=== PATIENT | female | born 1955 | race Caucasian/White ===

== ENCOUNTER 2017-03-17 12:01 | Inpatient (IN) | payer OTHER ==
--- NOTE | 2017-03-17 13:05 | EDPHY ---
H & P Stated Complaint: htn, blood pressure incresed during stress test, unable to complete Time Seen by Provider: 03/17/17 12:51 HPI/ROS: CHIEF COMPLAINT: High blood pressure comma chest pain HISTORY OF PRESENT ILLNESS: The patient is a 62-year-old female who is sent from the Cardiology Clinic for admission and cardiac workup. She denies significant past medical history. She was referred by her primary care physician for a stress test today. During the stress test her blood pressure which was 160 systolic at baseline elevated to almost 260. She also experienced chest pain and shortness of breath and diaphoresis. She states that she has had the symptoms with exertion over the last month. Especially when climbing stairs. They performed a echocardiogram that was unremarkable at the cardiology clinic and sent her here for enzymes and admission. The patient currently is asymptomatic but still has an elevated blood pressure. She denies headache or lightheadedness or palpitations. REVIEW OF SYSTEMS: Constitutional: denies: chills, fever, recent illness, recent injury EENTM: denies: blurred vision, double vision, nose congestion Respiratory: denies: cough, shortness of breath Cardiac: See HPI Gastrointestinal/Abdominal: denies: abdominal pain, diarrhea, nausea, vomiting, blood streaked stools Genitourinary: denies: dysuria, frequency, hematuria, pain Musculoskeletal: denies: joint pain, muscle pain Skin: denies: lesions, rash, jaundice, bruising Neurological: denies: headache, numbness, paresthesia, tingling, dizziness, weakness Hematologic/Lymphatic: denies: blood clots, easy bleeding, easy bruising Immunologic/allergic: denies: HIV/AIDS, transplant EXAM: GENERAL: Well-appearing, overweight and in no acute distress. HEAD: Atraumatic, normocephalic. EYES: Pupils equal round and reactive to light, extraocular movements intact, sclera anicteric, conjunctiva are normal. ENT: TMs normal, nares patent, oropharynx clear without exudates. Moist mucous membranes. NECK: Normal range of motion, supple without lymphadenopathy or JVD. LUNGS: Breath sounds clear to auscultation bilaterally and equal. No wheezes rales or rhonchi. HEART: Regular rate and rhythm without murmurs, rubs or gallops. ABDOMEN: Soft, nontender, normoactive bowel sounds. No guarding, no rebound. No masses appreciated. BACK: No CVA tenderness, no spinal tenderness, step-offs or deformities EXTREMITIES: Normal range of motion, no pitting or edema. No clubbing or cyanosis. NEUROLOGICAL: Cranial nerves II through XII grossly intact. Normal speech, normal gait. 5/5 strength, normal movement in all extremities, normal sensation PSYCH: Normal mood, normal affect. SKIN: Warm, dry, normal turgor, no visible rashes or lesions. Source: Patient Exam Limitations: No limitations - Personal History Current Tetanus Diphtheria and Acellular Pertussis (TDAP): Yes - Medical/Surgical History Hx Asthma: No Hx Chronic Respiratory Disease: No Hx Diabetes: No Hx Cardiac Disease: No Hx Renal Disease: No Hx Cirrhosis: No Hx Alcoholism: No Hx HIV/AIDS: No Hx Splenectomy or Spleen Trauma: No Other PMH: high cholesterol - Family History Significant Family History: No pertinent family hx - Social History Smoking Status: Never smoked Alcohol Use: Sober Drug Use: None Constitutional: Initial Vital Signs Temperature (C) 36.8 C 03/17/17 12:11 Heart Rate 80 03/17/17 12:11 Respiratory Rate 16 03/17/17 12:11 Blood Pressure 212/94 H 03/17/17 12:11 O2 Sat (%) 95 03/17/17 12:11 O2 Delivery Mode Room Air Allergies/Adverse Reactions: lovastatin Allergy (Verified 02/26/16 08:37) Other-Enter Comments LACTOSE INTOL Allergy (Uncoded 10/19/12 12:15) GI ISSUES Home Medications: Medication Instructions Recorded Estradiol [Estradiol 1 MG (*)] 1 mg PO HS 03/17/17 Fenofibrate [Tricor 145 mg (*)] 145 mg PO DAILY 03/17/17 Herbals/Supplements -Info Only 1 ea PO DAILY 03/17/17 Ibuprofen [Advil] 200 mg PO DAILY PRN 03/17/17 Progesterone, Micronized 100 mg PO HS 03/17/17 [Progesterone] Medical Decision Making - Diagnostics EKG Interpretation: An EKG obtained and was read and documented in trace view. Please see trace view for full reading and report. Left bundle branch block, no acute ischemic changes ED Course/Re-evaluation: 2:30 Discussed the case with Dr. Nancy Hess who will admit to the medical service. The patient remained symptom-free. Blood pressure is improved with metoprolol. Differential Diagnosis: Partial list of the Differential diagnosis considered include but were not limited to; acute coronary disease, arrhythmia, hypertensive emergency and although unlikely based on the history and physical exam, I also considered STEMI, infection. - Data Points Laboratory Results: Laboratory Results 03/17/17 13:14 03/17/17 13:14 Medications Given: Discontinued Medications Metoprolol Tartrate (Lopressor Injection) 5 mg IVP Q5M CHRISTINE Stop: 03/17/17 13:41 Last Admin: 03/17/17 15:04 Dose: Not Given Departure - Departure Disposition: [facility] Inpatient Acute Clinical Impression: Chest pain Qualifiers: Chest pain type: other chest pain Qualified Code(s): R07.89 - Other chest pain Condition: Fair
[2017-03-17] MEDS: METOPROLOL TARTRATE 5 MG/5 ML INJ IVP SCH ×2 (13:19→15:04)
[2017-03-17 13:21] LABS: % IMMATURE GRANULYOCYTES 0.2 % (0.0-1.1); ABSOLUTE IMMATURE GRANULOCYTES 0.02 10^3/uL (0.00-0.10); ADD DIFF? NO; ADD MORPH? NO; ADD SCAN? NO; ATYPICAL LYMPHOCYTE FLAG 10 (0-99); FRAGMENT RBC FLAG 0 (0-99); HEMATOCRIT 46.6 % (38.0-47.0); LEFT SHIFT FLG 0 (0-99); LIPEMIA HEMOLYSIS FLAG 80 (0-99); MEAN CELL HEMOGLOBIN 28.4 pg (27.9-34.1); MEAN CELL HEMOGLOBIN CONCENTR. 32.2 g/dL (32.4-36.7); MEAN CELL VOLUME 88.1 fL (81.5-99.8); MEAN PLATELET VOLUME 12.4 fL (8.7-11.7); PLATELET CLUMPS FLAG 10 (0-99); PLATELET COUNT 275 10^3/uL (150-400); RED BLOOD CELL COUNT 5.29 10^6/uL (4.18-5.33); RED CELL DISTRIBUTION WIDTH 13.6 % (11.5-15.2)
--- NOTE | 2017-03-17 13:21 | CPEKG ---
Heart Rate: 69 RR Interval: 870 P-R Interval: 184 QRSD Interval: 156 QT Interval: 468 QTC Interval: 502 P [place]: 47 QRS Hugo: -62 T Wave [place]: 77 EKG Severity - ABNORMAL ECG - EKG Impression: SINUS RHYTHM EKG Impression: LEFT BUNDLE BRANCH BLOCK Electronically Signed By: Cuco Moise 17-Mar-2017 13:24:50
[2017-03-17 13:55] LABS: ANION GAP 14 mEq/L (8-16); CALCIUM 10.9 mg/dL (8.5-10.4); CARBON DIOXIDE 23 mEq/l (22-31); CHLORIDE 107 mEq/L (97-110); CREATININE 0.8 mg/dL (0.6-1.0); GLOMERULAR FILTRATION RATE > 60; GLUCOSE 155 mg/dL (70-100); POTASSIUM 4.2 mEq/L (3.5-5.2); SODIUM 144 mEq/L (134-144)
[2017-03-17 14:06] LABS: TROPONIN I < 0.012 ng/mL (0-0.034)
[2017-03-17] MEDS ORDERED: NITROGLYCERIN 0.4 MG BTL SL PRN (15:47)
[2017-03-17] MEDS ORDERED: ONDANSETRON 4 MG/2 ML VIAL IVP PRN (15:51)
[2017-03-17] MEDS ORDERED: hydrALAZINE 20 MG/ML VIAL IVP PRN (15:51)
--- NOTE | 2017-03-17 16:32 | GHP ---
[f rep st] HISTORY AND PHYSICAL DATE OF ADMISSION: 03/17/2017 CHIEF COMPLAINT: Chest pain, shortness of breath. HISTORY: The patient is a 62-year-old female who was sent from the cardiology office where she was attempting to do an outpatient stress test today. On presentation her systolic blood pressure is 16 0 and it went up to 260 during the stress test and she developed chest pain and shortness of breath and so the stress test was aborted. They did an echo in the office that was negative. They sent he r to the emergency room and recommended observation stay with Lexiscan stress test tomorrow morning. The patient has been having gradually worsening chest pain for the last 7 weeks. It initially start ed as shortness of breath that she would get with very minimal exertion. She subsequently developed a right-sided chest pain, also worse with exertion and better with rest. This was dull. These sym ptoms were quite severe, however, and they took a trip to [place] and she was on a tour bus with many [id number] and she could not keep up with them due to these symptoms. Last week she woke up with chest pain at rest first thing in the morning. This prompted her to call Dr. Adler, her primary care provider, who arranged for outpatient stress testing. That was being performed today. The chest p ain also has a pleuritic component. PAST MEDICAL HISTORY: 1. Hyperlipidemia. 2. Hypertension. PAST SURGICAL HISTORY: Hernia repair. MEDICATIONS: Please see computer record for full detailed list. ALLERGIES: Lovastatin. SOCIAL HISTORY: No smoking. No alcohol. She lives with her . She is a semi-retired attorn . REVIEW OF SYSTEMS: Complete review of systems obtained. Review of systems negative regarding const itutional, HEENT, GI, pulmonary, cardiovascular, , hematology, skin, musculoskeletal, endocrine, p sych. Positives and negatives as in HPI. FAMILY HISTORY: Mother is still alive but has a long-standing history of [id number] hyper tension. There is no history of early coronary disease. No history of PE or DVT. PHYSICAL EXAMINATION: GENERAL: Well-developed, well-nourished female, in no acute distress. VITAL SIGNS: Temperature is 36.8, pulse 67, blood pressure 145/76, saturating 94% on room air. EYES: N ormal conjunctivae. Pupils react to light. ENT: Normal ears, nose. Hearing intact. Normal lips and teeth. Oropharynx moist. NECK: Trachea midline. No thyromegaly. CHEST: Normal respiratory effort. LUNGS: Clear to auscultation bilaterally. CARDIOVASCULAR: Regular rate and rhythm. No m urmur. No lower extremity edema. ABDOMEN: Soft, nontender. No hepatosplenomegaly. SKIN: Warm, dry, intact. No rash. MUSCULOSKELETAL: No cyanosis or clubbing. Strength 5/5 upper and lower ext remities. NEUROLOGICAL: Cranial nerves intact. Normal sensation to light touch. PSYCHIATRIC: Al ert and oriented x3. Normal affect. Normal judgment. Normal memory. LABORATORY DATA: White count 8.14, hematocrit 46.6, platelets 275. Sodium 144, potassium 4.2, chlo ride 107, bicarb 23, BUN 14, creatinine 0.8, glucose 155, troponins negative. EKG reviewed by me. My personal interpretation is normal sinus rhythm with left bundle branch block . This case was discussed with Dr. Moise, emergency room provider. He did get a communication from [facility] recommending Lexiscan stress test in the morning. ASSESSMENT/PLAN: 1. Chest pain and shortness of breath with exertion, now with progression of symptoms to onset at r est. This a very concerning history. She failed an outpatient exercise treadmill test at [facility] and is now per Cardiology recommended for overnight observation for inpatient Lexiscan. Her tr oponin is negative. She does have a left bundle branch block of unclear chronicity but given the ti me line of her chest pain and current negative troponin, I suspect it has been going on for at least some time. Outpatient echo reportedly negative. This can be clarified with [facility] in the m orning. We will give her daily aspirin and check a lipid panel. I also think we need to rule out p ulmonary embolus. We will check a D-dimer and order CT angiogram of the chest if positive. 2. Hypertension. I suspect she does need to start antihypertensive medications and we will start h er on a daily dose of lisinopril. 3. Hyperlipidemia. Lovastatin intolerant. We will check a lipid panel in the morning and discuss further options once lipid panel results are known. CODE STATUS: Full. ADMISSION STATUS: 1. Will admit to observation, EACU. Anticipate discharge tomorrow if workup is negative. 2. Deep venous thrombosis. She is low risk. /[id number]/MODL
--- NOTE | 2017-03-17 16:51 | CPEKG ---
Heart Rate: 60 RR Interval: 1000 P-R Interval: 188 QRSD Interval: 136 QT Interval: 492 QTC Interval: 492 P [place]: 37 QRS [place]: -66 T Wave [place]: 58 EKG Severity - ABNORMAL ECG - EKG Impression: SINUS RHYTHM EKG Impression: LEFT BUNDLE BRANCH BLOCK Electronically Signed By: Jimy Whitt 17-Mar-2017 18:15:13
[2017-03-17] MEDS: ESTRADIOL 1 MG TAB PO SCH (20:13)
[2017-03-17] MEDS: PROGESTERONE,MICR 100 MG CAP PO SCH (20:13)
[2017-03-17] MEDS ORDERED: ONDANSETRON DISINTEGRATING 4 MG TAB ONE (21:12)
--- NOTE | 2017-03-17 21:47 | CPEKG ---
Heart Rate: 70 RR Interval: 857 P-R Interval: 208 QRSD Interval: 140 QT Interval: 488 QTC Interval: 527 P [place]: 66 QRS [place]: -56 T Wave [place]: 86 EKG Severity - ABNORMAL ECG - EKG Impression: SINUS RHYTHM EKG Impression: LEFT BUNDLE BRANCH BLOCK Electronically Signed By: Jimy Carlisle 18-Mar-2017 11:43:28
[2017-03-18 04:56] LABS: CHOLESTEROL 167 mg/dL (140-220); CHOLESTEROL/HDL RATIO 3.27 RATIO (1.00-4.44); HIGH DENSITY LIPOPROTEIN 51 mg/dL (40-85); LDL/HDL RATIO 1.73 RATIO (1.00-3.22); LOW DENSITY LIPOPROTEIN 88 mg/dL (80-100); NON-HIGH DENSITY LIPOPROTEIN 116 mg/dL (90-129); TRIGLYCERIDE 144 mg/dL (35-135); VERY LOW DENSITY LIPOPROTEINS 28 mg/dL (8-25)
[2017-03-18 05:08] LABS: TROPONIN I < 0.012 ng/mL (0-0.034)
[2017-03-18] MEDS: LISINOPRIL 10 MG TAB PO SCH (07:48)
[2017-03-18] MEDS: FENOFIBRATE 145 MG TAB PO SCH (07:49)
[2017-03-18] MEDS: ASPIRIN 325 MG TAB PO SCH (07:49)
[2017-03-18] MEDS ORDERED: REGADENOSON 0.4 MG/5 ML SYR IVP ONE (09:47)
--- NOTE | 2017-03-18 10:17 | PDCARCONS ---
Cardiology Consult Chief Complaint: Chest pain History of Present Illness: HPI: Polo is a 62 year old woman who presented to the emergency department yesterday after a hypertensive urgency on an EKG stress test at [facility]. She was admitted to the hospital for further observation with a Lexiscan MPI study scheduled today. The patient has a past medical history notable for hypertension and hyperlipidemia. She denies a family history significant for premature coronary artery disease or cardiovascular events. The patient has experienced new onset shortness of breath with exertion over the past few months. The shortness of breath developed into predictable chest discomfort with exertion (e.g. while walking up a set of stairs or walking briskly). The chest discomfort is described as a localized, right-sided pressure /sharp pain that is 6/10 in severity. The chest discomfort occasionally wakes her from sleep. Assessment/Plan: 1. Chest discomfort/pressure with light-moderate exertion consistent with CCS IV (awakens from sleep) angina pectoris. The patient experienced 6/10 chest discomfort and bilateral arm pain on vasodilator injection. Given her symptoms of predictable angina with exertion and chest discomfort with Lexiscan MPI, I would like to cancel the nuclear imaging portion of the pharmacologic stress test and proceed directly with cardiac catheterization. I have explained the risks, expected benefits and potential complications of this course of action with the patient and she wishes to proceed as planned. Some potential benefits include angina relief, definitive assessment of coronary anatomy and LV function. Complications have been described as , permanent and disabling stroke, heart attack, abnormal heart rhythm, bleeding and damage to blood vessels resulting in tissue or limb loss. 2. Hypertensive urgency If the cath is negative for flow limiting obstruction the patient will need treatment for her hypertension likely with a calcium channel antagonist and an ARB medication. I do believe the patient should have a blood pressure of less than 150 mm HG at rest on an oral regimen prior to discharge. 3. Hyperlipidemia will discuss further management in today's cath report. History Information - Allergies/Home Medication List Allergies/Adverse Reactions: lovastatin Allergy (Verified 02/26/16 08:37) Other-Enter Comments LACTOSE INTOL Allergy (Uncoded 10/19/12 12:15) GI ISSUES Home Medications: Estradiol [Estradiol 1 MG (*)] 1 mg PO HS 03/17/17 [Last Taken 03/16/17] Fenofibrate [Tricor 145 mg (*)] 145 mg PO DAILY 03/17/17 [Last Taken 03/16/17] Herbals/Supplements -Info Only 1 ea PO DAILY 03/17/17 [Last Taken 03/16/17] Ibuprofen [Advil] 200 mg PO DAILY PRN 03/17/17 [Last Taken 03/17/17] Progesterone, Micronized [Progesterone] 100 mg PO HS 03/17/17 [Last Taken ] I have personally reviewed and updated: medical history - Past Medical History hypertension, hyperlipidemia - Social History Smoking Status: Never smoked Alcohol Use: Sober Drug Use: None Cardiac History - Cardiac History Cardiac Risk Factors: hypertension (>140/90), lipidemia Timing/Duration: Changing over time Severity: moderate Severity Scale: 5 Location: substernal, central Activities at Onset: activity, emotional stress, sleep Modifying Factors: improves with: exercise Associated Symptoms: chest pain, shortness of breath Physical Exam Temp Pulse Resp BP Pulse Ox 36.8 C 78 18 142/72 H 93 03/18/17 07:42 03/18/17 07:42 03/18/17 07:42 03/18/17 07:48 03/18/17 07:42 Constitutional: appears nourished, uncomfortable, No no apparent distress Ears, Nose, Mouth, Throat: moist mucous membranes Cardiovascular: regular rate and rhythym, no murmur, rub, or gallop, No edema Peripheral Pulses: 2+: femoral (R), femoral (L), dorsalis-pedis (R), dorsalis- pedis (L) Respiratory: no respiratory distress, no rales or rhonchi, clear to auscultation Gastrointestinal: normoactive bowel sounds Skin: warm, normal color, other (flushed appearance) Psychiatric: interacting appropriately, anxious Lymph, Heme, Immunologic: no cervical LAD Lab and Imaging 03/17/17 13:14 03/17/17 13:14 WBC 8.14 10^3/uL (3.80-9.50) 03/17/17 13:14 RBC 5.29 10^6/uL (4.18-5.33) 03/17/17 13:14 Hgb 15.0 g/dL (12.6-16.3) 03/17/17 13:14 Hct 46.6 % (38.0-47.0) 03/17/17 13:14 MCV 88.1 fL (81.5-99.8) 03/17/17 13:14 MCH 28.4 pg (27.9-34.1) 03/17/17 13:14 MCHC 32.2 g/dL (32.4-36.7) L 03/17/17 13:14 RDW 13.6 % (11.5-15.2) 03/17/17 13:14 Plt Count 275 10^3/uL (150-400) 03/17/17 13:14 MPV 12.4 fL (8.7-11.7) H 03/17/17 13:14 Neut % (Auto) 67.1 % (39.3-74.2) 03/17/17 13:14 Lymph % (Auto) 22.9 % (15.0-45.0) 03/17/17 13:14 [place] % (Auto) 8.2 % (4.5-13.0) 03/17/17 13:14 Eos % (Auto) 0.6 % (0.6-7.6) 03/17/17 13:14 Baso % (Auto) 1.0 % (0.3-1.7) 03/17/17 13:14 Nucleat RBC Rel Count 0.0 % (0.0-0.2) 03/17/17 13:14 Absolute Neuts (auto) 5.46 10^3/uL (1.70-6.50) 03/17/17 13:14 Absolute Lymphs (auto) 1.86 10^3/uL (1.00-3.00) 03/17/17 13:14 Absolute Monos (auto) 0.67 10^3/uL (0.30-0.80) 03/17/17 13:14 Absolute Eos (auto) 0.05 10^3/uL (0.03-0.40) 03/17/17 13:14 Absolute Basos (auto) 0.08 10^3/uL (0.02-0.10) 03/17/17 13:14 Absolute Nucleated RBC 0.00 10^3/uL (0-0.01) 03/17/17 13:14 Immature Gran % 0.2 % (0.0-1.1) 03/17/17 13:14 Immature Gran # 0.02 10^3/uL (0.00-0.10) 03/17/17 13:14 D-Dimer < 0.27 ug/mLFEU (0.00-0.50) 03/17/17 16:32 Sodium 144 mEq/L (134-144) 03/17/17 13:14 Potassium 4.2 mEq/L (3.5-5.2) 03/17/17 13:14 Chloride 107 mEq/L (97-110) 03/17/17 13:14 Carbon Dioxide 23 mEq/l (22-31) 03/17/17 13:14 Anion Gap 14 mEq/L (8-16) 03/17/17 13:14 BUN 14 mg/dL (7-23) 03/17/17 13:14 Creatinine 0.8 mg/dL (0.6-1.0) 03/17/17 13:14 Estimated GFR > 60 03/17/17 13:14 Glucose 155 mg/dL (70-100) H 03/17/17 13:14 Calcium 10.9 mg/dL (8.5-10.4) H 03/17/17 13:14 Phosphorus 4.4 mg/dL (2.5-4.5) 03/17/17 13:14 Troponin I < 0.012 ng/mL (0-0.034) 03/18/17 04:20 Triglycerides 144 mg/dL (35-135) H 03/18/17 04:20 Cholesterol 167 mg/dL (140-220) 03/18/17 04:20 Cholesterol Risk Factr 0.5 (0.2-1.0) 03/18/17 04:20 LDL Cholesterol, Calc 88 mg/dL (80-100) 03/18/17 04:20 LDL Risk Factor 0.6 (0.2-1.0) 03/18/17 04:20 VLDL Cholesterol 28 mg/dL (8-25) H 03/18/17 04:20 Non-HDL Cholesterol 116 mg/dL (90-129) 03/18/17 04:20 HDL Cholesterol 51 mg/dL (40-85) 03/18/17 04:20 LDL/HDL Ratio 1.73 RATIO (1.00-3.22) 03/18/17 04:20 Cholesterol/HDL Ratio 3.27 RATIO (1.00-4.44) 03/18/17 04:20 TSH 3.630 uIU/mL (0.465-4.680) 03/18/17 04:20 Visualized and Interpreted EKG results: Yes EKG Interpretation: Positive for: left bundle branch block, normal sinsus rhythm , other (Marked first degree AV block) Echocardiogram: CONCLUSIONS: * LV size: normal. * LV thickness: normal. * LV systolic function: normal left ventricular systolic function with no regional wall motion abnormalities noted and paradoxic septal motion suggestive of bundle branch block, pacemaker, or prior cardiac surgery. * Ejection fraction of 64 %. * LV diastolic function: Impaired relaxation pattern. * RV size: normal. * RV function: normal. * Left atrium: normal size. * Right atrium: normal size. * Valvular Appearance: Aortic, mitral and tricuspid valves appear normal. Pulmonary valve is not well visualized. * Color Flow and Doppler: No significant doppler abnormalities noted.. * Normal estimated right ventricular systolic pressure. * No pericardial effusion seen. * No other significant findings * Comparison: There are no prior studies for comparison. * Recommendations: Normal study
[2017-03-18] MEDS ORDERED: DIAZEPAM 5 MG TAB PO ONE (10:30)
[2017-03-18] MEDS ORDERED: ASPIRIN EC 325 MG TAB PO ONE (10:30)
[2017-03-18] MEDS ORDERED: FAMOTIDINE 20 MG TAB PO ONE (10:30)
[2017-03-18] MEDS ORDERED: NS 1,000 ML IV ONE (10:30)
[2017-03-18] MEDS ORDERED: diphenhydrAMINE 25 MG CAP PO ONE ×2 (10:30→10:35)
[2017-03-18] MEDS ORDERED: FAMOTIDINE 20 MG TAB ONE (10:35)
[2017-03-18] MEDS ORDERED: DIAZEPAM 5 MG TAB ONE (10:36)
[2017-03-18] MEDS ORDERED: VERAPAMIL 5 MG/2 ML VIAL ONE (10:50)
[2017-03-18] MEDS ORDERED: MIDAZOLAM 2 MG/2 ML VIAL ONE ×2 (10:50→11:22)
[2017-03-18] MEDS ORDERED: IOPAMIDOL (ISOVUE-370) 150 ML BTL IV ONE ×2 (10:50→11:31)
[2017-03-18] MEDS ORDERED: LIDOCAINE 1% 30 ML SDV ONE (10:50)
[2017-03-18] MEDS ORDERED: HEPARIN 10,000 UNIT/10 ML MDV ONE (10:50)
[2017-03-18] MEDS ORDERED: fentaNYL 100 MCG/2 ML INJ ONE ×2 (10:50→11:25)
[2017-03-18] MEDS ORDERED: hydrALAZINE 20 MG/ML VIAL ONE (11:37)
--- NOTE | 2017-03-18 12:39 | PDDXCAT ---
Diagnostic Cath Note - . Date: 03/18/17 Intervention: None *Procedure 1. selective coronary angiography 2. left heart catheterization 3. left ventriculogram Indication: CCS IV angina and predictable angina pectoris with minimal exertion. Please see dictated H&P for more details. Access: Right radial artery (a plethysmography trace assisted Casey's Test was used to document dual artery supply to the hand and index finger prior to access ). *Materials Left Heart Cath size: 5F Left Heart Cath materials: JL3.5, JR4.0, pigtail *Findings-Selective Coronary Angiography LM: The left main is short and ~5 mm in size and bifurcates into an LAD and circumflex system. There is no evidence of flow-limiting disease. LAD: The proximal LAD is ~3.5 mm in size. There is mild luminal irregularity in the proximal LAD without evidence of flow-limiting disease and DANIEL III flow throughout. There is a prominent "wrap around" LAD. LCX: There is an early OM branch with a 20% ostial stenosis. The left circumflex proper is ~3 mm in size proximally. There is mild luminal irregularity in the proximal left circumflex which is consistent with underlying atherosclerosis. There is no evidence of flow-limiting disease with DANIEL III flow throughout. RCA: The right coronary artery is ~2 mm in size and dominant (gives rise to PDA and PLV branches). There is no evidence of flow-limiting disease with DANIEL III flow throughout. The PDA is small and atretic. *Findings-Left Heart Catheterization EDP: 19 mmHg LVEF: 70% AO: 157/66/105 mmHg LVG: The visualized portion of the thoracic aorta appears to be within normal limits in size without evidence of kim dissection or aneurysm. There is hyperdynamic systolic function with high-normal ejection fraction without segmental wall motion abnormalities. There is catheter induced MR that was likely secondary to pressurized injection (echocardiogram performed 03/17/17 did not reveal mitral regurgitation of significance or other Doppler abnormalities). *Summary Complications: None Estimated blood loss: <50ml Closure method: TR Band Assessment/Conclusion: 1. There is no evidence of flow-limiting coronary artery disease or obstruction (maximal luminal stenosis of 20% in the ostial obtuse marginal with DANIEL III flow throughout). The patient's exertional chest discomfort & dyspnea are not related to obstructive coronary artery disease. 2. Hyperdynamic left ventricular systolic function likely related to uncontrolled HTN. I would like to place the patient on 10 mg Amlodipine daily and 300 mg Irbesartan daily for further blood pressure control. If she develops peripheral edema or her blood pressure is not well-controlled, I would add 25 mg Chlorthalidone and back off on the dose of the Amlodipine. If she continues to have chest pain in spite of good blood pressure control, other causes of chest pain should be considered. 3. Abnormal EKG with recently identified left bundle branch block. Her chest pain may be related to so called "LBBB chest pain syndrome" (sometimes patients with new or intermittent LBBB develop a chest pain syndrome which is consistent with angina). Patient Problems: Problems Problem Status Onset Chest pain Acute
--- NOTE | 2017-03-18 14:15 | HOSPPROG ---
Hospitalist Progress Note Assessment/Plan: # CP/SOB - d-dimer neg, cath neg - will treat uncontrolled BP and follow for resolution - lipids ok - no indication for treatment # LBBB - new per records # htn - norvasc and irbesartan recommended by cardiology; will institute those here and follow ## discussed with Dr Grady CXR personally reviewed ECG personally reviewed chart reviewed Subjective: got SOB and CP after amilcar injection; now s/p negative cath Objective: Vital Signs Temp Pulse Resp BP Pulse Ox 36.8 C 78 18 142/72 H 93 03/18/17 07:42 03/18/17 07:42 03/18/17 07:42 03/18/17 07:48 03/18/17 07:42 - Physical Exam Constitutional: no apparent distress, appears nourished Cardiovascular: regular rate and rhythym, systolic murmur, No irregularly irregular, No tachycardia, No bradycardia Respiratory: no respiratory distress, no rales or rhonchi, clear to auscultation Gastrointestinal: normoactive bowel sounds, soft, non-tender abdomen, no palpable masses ICD10 Worksheet Patient Problems: Problems Problem Status Onset Chest pain Acute
--- NOTE | 2017-03-18 21:01 | CPIP ---
[f rep st] INVASIVE CARDIAC PROCEDURE DATE OF PROCEDURE: 03/18/2017 PROCEDURE: Supervision/interpretation of a Lexiscan perfusion nuclear stress test. PROCEDURE IN DETAIL: After informed consent was obtained and n.p.o. status was confirmed, the patie nt was connected to a 12-lead pen ruler operator. The patient received standard dose Lexiscan with symptom s of chest discomfort and a weight on her chest, which radiated to the inner aspects of both her arm s, as well as significant hypertension with peak systolic pressure of 205. INDICATION FOR THE PROCEDURE: Chest pain and shortness of breath with exertion. Given the findings of typical anginal quality chest discomfort at rest in a patient with risk factor s for coronary disease and a 7-week history of exertional chest discomfort, I felt it would be unsaf e to leave the patient in the Nuclear Medicine Department for imaging, realizing that if the nuclear stress imaging were abnormal, then the patient would require catheterization with her clinical hist ory; and if the nuclear imaging were normal, I would of been very concerned about the possibility of a false negative study. For those reasons, we canceled the myocardial perfusion imaging portion of the test and transported the patient emergently to the [facility] for emergent cardiac catheterization. /[id number]/MODL
[2017-03-18] MEDS: PROGESTERONE,MICR 100 MG CAP PO SCH (21:39)
[2017-03-18] MEDS: ESTRADIOL 1 MG TAB PO SCH (21:39)
[2017-03-19] MEDS: ACETAMINOPHEN 325 MG TAB PO PRN ×2 (04:27→10:43)
[2017-03-19 05:33] LABS: ANION GAP 8 mEq/L (8-16); CALCIUM 9.1 mg/dL (8.5-10.4); CARBON DIOXIDE 23 mEq/l (22-31); CHLORIDE 110 mEq/L (97-110); CREATININE 0.8 mg/dL (0.6-1.0); GLOMERULAR FILTRATION RATE > 60; GLUCOSE 90 mg/dL (70-100); POTASSIUM 4.1 mEq/L (3.5-5.2); SODIUM 141 mEq/L (134-144)
[2017-03-19] MEDS: ASPIRIN 325 MG TAB PO SCH (07:57)
[2017-03-19] MEDS: LISINOPRIL 10 MG TAB PO SCH (07:58)
[2017-03-19] MEDS ORDERED: IRBESARTAN 150 MG TAB PO SCH (09:00)
[2017-03-19] MEDS: FENOFIBRATE 145 MG TAB PO SCH (09:35)
[2017-03-19 11:32] VITALS: BP 143/67; PULSE 73; RESP 15; TEMP 97.9; O2SAT 94
--- NOTE | 2017-03-19 15:48 | GDS ---
[f rep st] DISCHARGE SUMMARY ALL DIAGNOSES: 1. Chest pain. 2. Uncontrolled hypertension. 3. Left bundle branch block. 4. Shortness of breath. HOSPITAL COURSE: This is a 62-year-old relatively healthy female who presented with new onset chest pain and shortness of breath. She was also noted to have a new left bundle branch block by her [facility] physician. He ordered an outpatient stress test. During the exercise portion of this, talia chambers experienced chest pain and shortness of breath. She was then admitted for an inpatient Lexiscan. During administration of Lexiscan, she developed the same symptoms. She underwent a radial cathete rization which showed no coronary artery disease. She also had a negative D-dimer. This was discus sed at length with Cardiology. It was felt that her uncontrolled hypertension may be contributing t o her symptoms. Her blood pressures were as high as 212/94. She has been started on amlodipine as well as irbesartan. She will follow up within a week with her primary care physician for potential medication adjustments and they will assess for side effects. Discharge blood pressure is 143/67. She and her are comfortable with this plan. They have bought a home blood pressure monitor. BILLING: I spent more than 30 minutes on the day of discharge coordinating care. /[id number]/MODL
== END 2017-03-19 15:26 | disposition home or self-care (01) | DRG 287 ==
LOC: F1N 15:06 → OBSVTOIN 03-18 14:12 → F2W 03-18 15:36
PROVIDERS: ADMIT Internal Medicine; ATTEND Internal Medicine
DX: R07.9 Chest pain, unspecified (principal); I16.0 Hypertensive urgency; I44.7 Left bundle-branch block, unspecified; E78.5 Hyperlipidemia, unspecified
CPT/HCPCS: A9500; G0378; J0360; J1644; J2250; J2405; J2785; J3010; Q9967

== ENCOUNTER → 2017-08-14 | Outpatient (CLI) | payer OTHER | LOC: FIMAGING 15:54 | PROVIDERS: ATTEND Family Medicine | DX: Z12.31 Encounter for screening mammogram for malignant neoplasm of breast (principal) | CPT/HCPCS: G0202 ==

== ENCOUNTER → 2018-02-06 | Outpatient (CLI) | payer OTHER | LOC: FIMAGING 14:01 | PROVIDERS: ATTEND Family Medicine | DX: Z13.820 Encounter for screening for osteoporosis (principal) ==

== ENCOUNTER → 2018-08-17 | Outpatient (CLI) | payer OTHER | LOC: FIMAGING 13:42 | PROVIDERS: ATTEND Family Medicine | DX: Z12.31 Encounter for screening mammogram for malignant neoplasm of breast (principal); Z80.3 Family history of malignant neoplasm of breast ==